=== PATIENT | female | born 2000 | race Two or more races ===

== ENCOUNTER 2022-11-20 14:52 | Emergency (ER) | payer OTHER, SELFPAY ==
--- NOTE | 2022-11-20 15:45 | MHC.CARE ---
CARE Team received a call from Daysi Potter from [facility] about the pt. Ms. Potter stated that she had seen the pt twice this week and is concerned about the pt's substance use, specifically about how she has been mixing ETOH with adderall. According to Ms. Potter, pt is not at her baseline, is depressed, and has stated that If I killed myself, no one would care. However, when Ms. Potter was evaluating her, pt denied SI. Pt has a family hx of bipolar d/o. Father is aware that pt is at the hospital. Daysi Potter can be reached at [phone] and she is available until 5pm. Can still call this number after 5pm to speak with an on-call clinician.
[2022-11-20 15:58] VITALS: BP 124/82; BP 127/83; PULSE 55; PULSE 76; RESP 16; TEMP 36.1; O2SAT 97; O2SAT 99; BMI 22.3
--- NOTE | 2022-11-20 16:03 | ED.PSYCH ---
HPI - Psych General Chief Complaint: Psychiatric Symptoms Stated Complaint: MENTAL HEALTH EVAL Time Seen by Provider: 11/20/22 16:00 Source: patient, EMS, RN notes reviewed and old records reviewed Mode of arrival: EMS History of Present Illness HPI Narrative: 22-year-old female with no significant past medical history presenting to the ED complaining of increasing anxiety/panic and depression over the past week. States she is crying daily, having difficulty concentrating, and having scary thoughts. Admits to going to [facility] last weekend to celebrate a friend 22st birthday, admits drank too much ETOH and mixed with cocaine, ended up in [facility] emergency department. Admits since incident has been ostracized by friends. Patient admits to talking to school counselor who instructed her to come to the emergency department for full evaluation. Denies daily EtOH use or recent drug use. Denies SI/HI at present. MD complaint: feels depressed and anxiety Related Data Home Medications Medication Instructions Recorded Confirmed No Known Home Meds 11/20/22 11/20/22 Allergies Allergy/AdvReac Type Severity Reaction Status Date / Time amoxicillin Allergy Hives Verified 11/20/22 15:10 doxycycline Allergy Hives Verified 11/20/22 15:09 Penicillins Allergy Hives Verified 11/20/22 15:09 Review of Systems Review of Systems: Constitutional: No Fever, No Chills, No Fatigue, No Malaise ENT/Mouth: No Ear Pain, No Nasal Congestion, No sore throat, No Rhinorrhea, No Swallowing Difficulty Eyes: No Eye Pain, No Swelling, No Redness, No Vision Changes Cardiovascular: No Chest Pain, No SOB, No Edema, No Palpitations Respiratory: No Cough, No Sputum, No Dyspnea Gastrointestinal: No Nausea, No Vomiting, No Diarrhea, No Constipation, No Abdominal pain Musculoskeletal: No joint pain, No Myalgias, No Joint Swelling Skin: No Skin Lesions, No rash Neuro: No Weakness, No Headache Psych: +Anxiety/Panic, + Depression, No SI/HI/AH/VH, + Social Issues Yes all other systems are reviewed and are negative Constitutional: Constitutional: Reports as per [facility] Past Medical History Attestation statement: The following information was validated with the patient. Source: old records reviewed Social History Social History Advance Directives: No Advance Directives Information Provided: No Healthcare Proxy: No Guardian: No Physical Exam Vital Signs: Vital Signs: Last Vital Signs Temp 97 F 11/20/22 15:58 Pulse 55 11/20/22 15:58 Resp 16 11/20/22 15:58 BP 127/83 11/20/22 15:58 Pulse Ox 99 11/20/22 15:58 O2 Del Method Room Air 11/20/22 15:58 BMI result Body Mass Index 22.3 Const: General: cooperative, healthy appearing and no acute distress Orientation/consciousness: patient oriented x3 Limitations: no limitations HEENT: Head: Yes normal to inspection and Yes atraumatic Ears: hearing grossly normal bilaterally General nose exam: Normal external nose present Face and sinus: Yes normal facial exam Eyes: General: appearance normal, both eyes and all related structures EOM: EOMs intact bilaterally Neck: Neck: Yes normal visual inspection and Yes no meningeal signs Resp: Effort & Inspection: normal respiratory effort and no respiratory distress Auscultation: clear to auscultation bilaterally Cardio: Rate: regular rate Heart sounds: S1 normal heart sound present and S2 normal heart sound present GI: Inspection: Yes normal to inspection Palpation (GI): Soft to palpation, nontender, no guarding and not rigid Skin: Rashes: no rashes Wounds: no wounds Neuro: General: patient oriented x3, tone normal, no meningeal signs and CN's II-XI intact bilaterally Cranial nerves: Yes CN's II-XII intact bilaterally Gait exam (Neuro): Normal gait present Extrem: General: Yes normal to inspection Psych: Appearance: grossly normal Affect: Sad affect present Attitude: cooperative Thought content: suicidality, no homicidality and Depressive thoughts present Insight: Good insight present (Psych) Judgement: Good judgement present (Psych) Course Course Course Narrative: 1822--patient was evaluated by CARE team and cleared for discharge home. Results discussed with patient including worrisome signs and symptoms and strict return precautions, and when to return to the emergency department. They verbalized understanding and feel safe for discharge at this time. Medical Decision Making Medical Decision Making MDM Narrative: 22-year-old female with no significant past medical history presenting to the ED complaining of increasing anxiety/panic and depression over the past week. On exam vital signs stable, NAD, nontoxic appearing, depressed, sad, anxious. Denies SI/HI present. Patient interested in speaking with CARE team. Low suspicion for organic causes. Plan: [facility] consult Please refer to course for remaining clinical decision making, interpretation of labs/imaging results, and discussions with consultants and/or family members. Differential Diagnosis Differential Diagnoses: The differential diagnosis associated with the presentation includes As above Admission/Observation Consideration of admission/observation: Escalation of care including admission/observation considered Consult Healthcare Provider Management of the patient was discussed with: Behavioral [facility] Provider Lab Data MDM Lab Attestation statement: I reviewed the patient's lab results. Labs: Lab Results 11/20/22 Range/Units 16:51 Urine Opiates Screen Not Detected (Not Detect) Urine Fentanyl Screen Not Detected (Not Detect) Ur Barbiturates Screen Not Detected (Not Detect) Ur Phencyclidine Scrn Not Detected (Not Detect) Ur Amphetamines Screen Not Detected (Not Detect) U Benzodiazepines Scrn Not Detected (Not Detect) Urine Cocaine Screen Not Detected (Not Detect) U Marijuana (THC) Screen Not Detected (Not Detect) External Record Review External record reviewed: Inpatient record, Office record, Outpatient record, Prior outpatient labs, Prior outpatient radiology, Primary care record and Outside ED record Tests considered The following testing was considered but not selected: As above Discharge Plan Discharge Clinical Impression: Depression, Acute anxiety, Polysubstance abuse Patient Disposition: Home, Self-Care Instructions: Depression (DC), Polysubstance Abuse (ED), Anxiety (ED) Additional Instructions: Please avoid alcohol and drug use, this can be harmful and kill you If you have thoughts of hurting herself or others return to the ED Please establish care with a therapist and psychiatrist Prescriptions: No Action No Known Home Meds Referrals: [facility] [Provider Group] [facility] [Outside] Interventions: [place]-Suicide Risk Severity Scale Last Done: 11/20/22 18:50 ED Discharge Assessment Last Done: 11/20/22 18:50 Discharge Date/Time: 11/20/22 18:51
[2022-11-20 17:06] LABS: Amphetamine Screen Urine Not Detected (Not Detect); Barbiturates, Urine Not Detected (Not Detect); Benzodiazepines Screen Urine Not Detected (Not Detect); Cannabinoid Screen Urine Not Detected (Not Detect); Cocaine Screen Urine Not Detected (Not Detect); Fentanyl, urine Not Detected (Not Detect); Opiate Screen Urine Not Detected (Not Detect); Phencyclidine Screen Urine Not Detected (Not Detect)
== END 2022-11-20 18:51 | disposition home or self-care (01) ==
PROVIDERS: Physician Assistant; Emergency Provider Emergency Medicine
DX: F41.9 Anxiety disorder, unspecified (principal); F32.A Depression, unspecified; F19.10 Other psychoactive substance abuse, uncomplicated
CPT/HCPCS: 80307; 99283; S9485